=== PATIENT | female | born 1985 | race Caucasian/White ===

== ENCOUNTER 2016-06-20 09:11 | Emergency (ER) | payer BC ==
[2016-06-20 11:04] VITALS: BP 102/73
--- NOTE | 2016-06-20 11:31 | UC ---
Eye Complaint HPI - HPI Summary HPI Summary: R eye red and crusted over since yesterday. Has been having different URI sx for more than 2 weeks -- nasal congestion, then ST, now both with cough. Denies fever or trouble breathing. Pt wears contacts, did not sleep in them. No FB sensation or photophobia. - History of Current Complaint Chief Complaint: UCEye Stated Complaint: CRUSTY ITCHY EYE Time Seen by Provider: 06/20/16 10:58 Hx Obtained From: Patient Hx Last Menstrual Period: couple of weeks ago ?: No Onset/Duration: Gradual Onset, Lasting Minutes Timing: Constant Severity Initially: Mild Severity Currently: Mild Location of Injury: Conjunctiva Character: Dull Aggravating Factor(s): Nothing Alleviating Factor(s): Nothing Associated Signs And Symptoms: Positive: Drainage (Clear), Drainage (Purulent) - Allergies/Home Medications Allergies/Adverse Reactions: Allergies Allergy/AdvReac Type Severity Reaction Status Date / Time No Known Allergies Allergy Verified 08/24/13 11:17 PMH/Surg Hx/FS Hx/Imm Hx Endocrine History Of: Denies: Diabetes, Thyroid Disease Cardiovascular History Of: Denies: Cardiac Disorders, Hypertension Respiratory History Of: Denies: COPD, Asthma GI/ History Of: Denies: Ulcer - Surgical History Surgical History: None - Family History Known Family History: Negative: Hypertension - Social History Occupation: Employed Full-time Lives: Alone Alcohol Use: Occasionally Substance Use Type: None Smoking Status (MU): Never Smoked Tobacco - Immunization History Most Recent Influenza Vaccination: season Review of Systems Constitutional: Negative Skin: Negative Eyes: Drainage, Eye Redness ENT: Sore Throat, Nasal Discharge Respiratory: Cough Cardiovascular: Negative Gastrointestinal: Negative Genitourinary: Negative Motor: Negative Neurovascular: Negative Musculoskeletal: Negative Neurological: Negative Psychological: Negative All Other Systems Reviewed And Are Negative: Yes Physical Exam Triage Information Reviewed: Yes Appearance: Well-Appearing, No Pain Distress, Well-Nourished Vital Signs: Initial Vital Signs Temp 98.5 F 06/20/16 10:56 Pulse 66 06/20/16 10:56 Resp 16 06/20/16 10:56 BP 102/73 06/20/16 10:56 Pulse Ox 100 06/20/16 10:56 Vital Signs Reviewed: Yes Eye Exam: Other - PERRL, cornea clear without opacity Eyes: Positive: Conjunctiva Inflamed - R ENT: Positive: Pharynx normal, Nasal congestion, Nasal drainage, TMs normal. Negative: Tonsillar swelling, Tonsillar exudate Dental Exam: Normal Neck exam: Normal Neck: Positive: Supple, Nontender, No Lymphadenopathy Respiratory Exam: Normal Respiratory: Positive: Chest non-tender, Lungs clear, Normal breath sounds, No respiratory distress, No accessory muscle use Cardiovascular Exam: Normal Cardiovascular: Positive: RRR, No Murmur Musculoskeletal Exam: Normal Neurological Exam: Normal Psychological Exam: Normal Skin Exam: Normal Eye Complaint Course/Dx - Differential Dx/Diagnosis Provider Diagnoses: URI, likely viral. R eye conjunctivitis Discharge - Discharge Plan Condition: Stable Disposition: HOME Prescriptions: Polymyx/Trimethoprim OPTH* [Polytrim OPHTH*] 1 drop RIGHT EYE QID #1 btl Patient Education Materials: Conjunctivitis (ED), Cold Symptoms (ED) Additional Instructions: Treat your eye until it is completely free of symptoms for at least 24 hours. 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 If you develop fever, acute pain, or any sudden worsening, please return here for a recheck. At this time I do not see any signs of secondary bacterial infection (with the possible exception of your eye).
== END 2016-06-20 11:24 | disposition home or self-care (01) ==
LOC: UCEAST 09:11
DX: H10.9 Unspecified conjunctivitis (principal); J06.9 Acute upper respiratory infection, unspecified
CPT/HCPCS: 99212; G0463

== ENCOUNTER 2021-12-05 19:36 | Inpatient (IN) ==
[2021-12-05] MEDS ORDERED: Buffered Lidocaine 1% SYRIN 1 ml INTRADERM ONE (21:27)
[2021-12-05] MEDS ORDERED: Lactated Ringers 1000 ml BAG 1,000 ML IV ONE (21:27)
[2021-12-05 22:03] LABS: Urine Benzodiazepine Screen None Detected (None Detect); Urine Cannabinoids Screen None Detected (None Detect); Urine Opiates Screen None Detected (None Detect)
[2021-12-06] MEDS ORDERED: Lidocaine 1% w EPI 1:200,000 SDV 30 ML VIAL ONE (01:02)
[2021-12-06] MEDS ORDERED: OBEPIDURAL (200 ML) 200 ML EPIDURAL ONE (01:02)
[2021-12-06 01:07] LABS: ABS Basophils 0.1 10^3/ul (0-0.2); ABS Eosinophils 0.5 10^3/ul (0-0.6); ABS Lymphocytes 1.3 10^3/ul (1.0-4.8); ABS Monocytes 0.9 10^3/ul (0-0.8); ABS Neutrophils 13.3 10^3/ul (1.5-7.7); Eosinophil % 2.9 %; Hematocrit 38 % (35-47); Hemoglobin 12.3 g/dL (12.0-16.0); Lymphocyte % 8.3 %; Mean Corpuscular HGB Conc 33 g/dL (31-36); Mean Corpuscular Hemoglobin 29 pg (27-31); Mean Corpuscular Volume 90 fL (80-97); Mean Platelet Volume 11.3 fL (7.4-10.4); Nucleated Red Blood Cells % 0.1; Platelet Count 116 10^3/uL (150-450); Red Blood Count 4.18 10^6 /uL (3.70-4.87); Red Cell Distribution Width 14 % (10-15); White Blood Count 16.1 10^3/uL (3.5-10.8)
[2021-12-06] MEDS: Lactated Ringers 1000 ml BAG 1,000 ML IV SCH ×3 (01:27→16:18)
[2021-12-06 03:47] LABS: Urine Appearance Clear; Urine Bilirubin Negative (Negative); Urine Blood Trace (Intact) (Negative); Urine Color Yellow; Urine Glucose Negative (Negative); Urine Ketones 4+ (>=160mg/dL) (Negative); Urine Nitrite Negative (Negative); Urine Protein 1+ (30 mg/dL) (Negative); Urine Specific Gravity 1.025 (1.005-1.030); Urine Urobilinogen 0.2 (Negative) (Negative)
[2021-12-06 04:07] LABS: Urine Bacteria 1+ (Absent); Urine Red Blood Cell Trace(0-2/hpf) (Absent); Urine Squamous Epithelial Cell Present (Absent); Urine White Blood Cell Trace(0-5/hpf) (Absent)
[2021-12-06] MEDS ORDERED: Sodium Citrate/Citric Acid LIQ 15 ML UDC PO PRN (07:08)
[2021-12-06] MEDS ORDERED: Lactated Ringers 1000 ml BAG 1,000 ML IV ONE (07:08)
[2021-12-06] MEDS ORDERED: Phenylephrine 40 mcg/mL 10mL (400mcg) SYRINGE IV PUSH PRN ×2 (07:08)
[2021-12-06] MEDS ORDERED: Lactated Ringers 1000 ml BAG 500 ML IV PRN ×2 (07:08)
[2021-12-06] MEDS ORDERED: Lactated Ringers 1000 ml BAG 1,000 ML IV SCH ×2 (08:00→18:00)
[2021-12-06] MEDS ORDERED: OBEPIDURAL (200 ML) 200 ML EPIDURAL SCH (08:00)
[2021-12-06] MEDS ORDERED: Oxytocin in LR 20,000 MILLI.UNIT/1,000 ML BAG IV ONE (15:45)
[2021-12-06] MEDS ORDERED: Dibucaine 1% OINT 28.35 GM TUBE PR PRN (17:03)
[2021-12-06] MEDS ORDERED: Witch Hazel PAD JAR TOPICAL PRN (17:03)
[2021-12-06] MEDS ORDERED: Methylergonovine 0.2 mg AMPULE 1 ml AMP IM ONE (17:03)
[2021-12-06] MEDS ORDERED: Oxytocin in LR 20,000 MILLI.UNIT/1,000 ML BAG IV SCH (17:15)
[2021-12-06] MEDS ORDERED: Ondansetron 4 mg VIAL 2 MG/ML 2 ml VIAL IV ONE (18:37)
[2021-12-07] MEDS ORDERED: Lidocaine 1% VIAL 10 MG/ML VIAL ONE (01:10)
[2021-12-07 08:07] LABS: ABS Basophils 0.1 10^3/ul (0-0.2); ABS Eosinophils 0.3 10^3/ul (0-0.6); ABS Lymphocytes 1.4 10^3/ul (1.0-4.8); ABS Neutrophils 8.3 10^3/ul (1.5-7.7); Eosinophil % 2.9 %; Hematocrit 29 % (35-47); Hemoglobin 10.1 g/dL (12.0-16.0); Lymphocyte % 12.4 %; Mean Corpuscular HGB Conc 35 g/dL (31-36); Mean Corpuscular Hemoglobin 31 pg (27-31); Mean Corpuscular Volume 90 fL (80-97); Mean Platelet Volume 10.7 fL (7.4-10.4); Platelet Count 104 10^3/uL (150-450); Red Blood Count 3.24 10^6 /uL (3.70-4.87); Red Cell Distribution Width 14 % (10-15)
[2021-12-07] MEDS ORDERED: Measles, Mumps,Rubella VACC 0.5 ML/VIAL SUBCUT ONE (09:00)
[2021-12-08 07:57] VITALS: BP 120/75
== END 2021-12-08 12:45 | disposition home or self-care (01) | DRG 560 ==
LOC: MCHOBOUT 19:36 → MCHOB 21:17
PROVIDERS: ADMIT Midwife; ATTEND Midwife

== ENCOUNTER 2023-10-22 18:06 | Inpatient (IN) ==
[2023-10-22] MEDS ORDERED: Lidocaine 1% VIAL 10 MG/ML 30 ML VIAL INJ PRN (18:24)
[2023-10-22] MEDS: Dinoprostone 10 MG VAG.SUPP VAGINAL ONE (19:37)
[2023-10-22 21:03] LABS: Urine Benzodiazepine Screen None Detected (None Detect); Urine Cannabinoids Screen None Detected (None Detect); Urine Opiates Screen None Detected (None Detect)
[2023-10-23] MEDS: Oxytocin in LR 20,000 MILLI.UNIT/1,000 ML BAG IV SCH (10:35)
[2023-10-23] MEDS: Lactated Ringers 1000 ml BAG 1,000 ML IV ONE (10:45)
[2023-10-23 11:30] LABS: Hematocrit 37.9 % (35-45); Hemoglobin 12.9 g/dL (11.5-14.3); Mean Corpuscular Volume 88.4 fL (80-97); Red Blood Count 4.29 10^6/uL (3.63-4.92); White Blood Count 8.2 10^3/uL (3.8-11.8)
[2023-10-23 12:19] LABS: ABS Eosinophils 0.5 10^3/uL (0.0-0.5); ABS Lymphocytes 1.6 10^3/uL (1.0-4.8); ABS Monocytes 0.6 10^3/uL (0.0-0.9); ABS Neutrophils 5.4 10^3/uL (1.5-7.6); ABS Nucleated RBC 0.01 10^3/ul; Eosinophil % 6.6 %; Large Platelets Present; Lymphocyte % 19.6 %; Mean Platelet Volume 11.3 fL (7.5-11.2); Nucleated Red Blood Cells % 0.1 %/100WBC (0.0-0.8); Platelet Count 111 10^3/uL (150-450)
[2023-10-23 23:29] LABS: Hematocrit 39.8 % (35-45); Hemoglobin 13.2 g/dL (11.5-14.3); Mean Corpuscular Hemoglobin 29.3 pg (27-33); Mean Corpuscular Hgb Conc 33.2 g/dL (31-36); Mean Corpuscular Volume 88.4 fL (80-97); Red Blood Count 4.51 10^6/uL (3.63-4.92); Red Cell Distribution Width 13.6 % (12-17)
[2023-10-24 00:04] LABS: Mean Platelet Volume 11.3 fL (7.5-11.2); Platelet Count 120 10^3/uL (150-450)
[2023-10-24 00:05] LABS: ABS Basophils 0.1 10^3/uL (0.0-0.1); ABS Eosinophils 0.7 10^3/uL (0.0-0.5); ABS Lymphocytes 2.1 10^3/uL (1.0-4.8); ABS Neutrophils 11.7 10^3/uL (1.5-7.6); ABS Nucleated RBC 0.01 10^3/ul; Eosinophil % 4.7 %; Lymphocyte % 13.5 %; Nucleated Red Blood Cells % 0.1 %/100WBC (0.0-0.8)
[2023-10-24] MEDS: OBEPIDURAL (200 ML) 200 ML EPIDURAL ONE (01:06)
[2023-10-24] MEDS: Lactated Ringers 1000 ml BAG 1,000 ML IV SCH (01:45)
[2023-10-24] MEDS ORDERED: Sodium Citrate/Citric Acid LIQ 15 ML UDC PO PRN (03:06)
[2023-10-24] MEDS ORDERED: Phenylephrine 40 mcg/mL 10mL (400mcg) SYRINGE IV PUSH PRN ×2 (03:06)
[2023-10-24 04:15] LABS: Urine Appearance Turbid; Urine Bilirubin Negative (Negative); Urine Blood 2+ (Negative); Urine Color Yellow; Urine Glucose Trace (Negative); Urine Ketones 4+ (Negative); Urine Nitrite Negative (Negative); Urine Protein 1+ (>=30 mg/dL) (Negative); Urine Specific Gravity 1.025 (1.002-1.030); Urine Urobilinogen Negative (Negative); Urine pH 6.5 (5.0-8.0)
[2023-10-24 04:21] LABS: Urine Bacteria Absent /HPF (Absent); Urine Red Blood Cell 2+(6-10/hpf) /HPF (0-Trace); Urine Squamous Epithelial Cell Present /HPF (Absent); Urine White Blood Cell Absent /HPF (0-Trace)
[2023-10-24] MEDS ORDERED: Glycerin ADULT 2.4 gm SUPP PR PRN (06:27)
[2023-10-24] MEDS: Ondansetron 4 mg VIAL 2 MG/ML 2 ml VIAL IV PRN (06:53)
[2023-10-24] MEDS ORDERED: Lactated Ringers 1000 ml BAG 1,000 ML IV SCH (07:00)
[2023-10-24] MEDS: Dibucaine 1% OINT 28.35 GM TUBE PR PRN (07:38)
[2023-10-24] MEDS: Witch Hazel PAD JAR TOPICAL PRN (07:38)
[2023-10-24] MEDS: Oxytocin in LR 20,000 MILLI.UNIT/1,000 ML BAG IV SCH (09:31)
[2023-10-24] MEDS: Lidocaine 1.5% EPI 1:200,000 30 ML SDV ONE (09:31)
[2023-10-24] MEDS: Methylergonovine 0.2 mg AMPULE 1 ml AMP ONE (09:31)
[2023-10-24] MEDS: Phenylephrine 40 mcg/mL 10mL (400mcg) SYRINGE ONE (09:31)
[2023-10-24] MEDS: OBEPIDURAL (200 ML) 200 ML EPIDURAL SCH (09:32)
[2023-10-24] MEDS: Lactated Ringers 1000 ml BAG 1,000 ML IV ONE (09:38)
[2023-10-25 06:49] LABS: ABS Basophils 0.1 10^3/uL (0.0-0.1); ABS Eosinophils 0.8 10^3/uL (0.0-0.5); ABS Neutrophils 6.4 10^3/uL (1.5-7.6); ABS Nucleated RBC 0.01 10^3/ul; Eosinophil % 8.3 %; Hematocrit 35.1 % (35-45); Lymphocyte % 19.1 %; Mean Corpuscular Hemoglobin 30.3 pg (27-33); Mean Corpuscular Hgb Conc 34.1 g/dL (31-36); Mean Corpuscular Volume 88.9 fL (80-97); Nucleated Red Blood Cells % 0.1 %/100WBC (0.0-0.8); Platelet Count 107 10^3/uL (150-450); Red Blood Count 3.95 10^6/uL (3.63-4.92); Red Cell Distribution Width 13.9 % (12-17); White Blood Count 10.2 10^3/uL (3.8-11.8)
[2023-10-25 08:08] VITALS: BP 93/63
== END 2023-10-25 11:10 | disposition home or self-care (01) | DRG 560 ==
LOC: MCHOBOUT 18:06 → MCHOB 19:14
PROVIDERS: ADMIT Midwife